=== PATIENT | male | born 1995 | race Caucasian/White ===

== ENCOUNTER 2021-08-07 23:31 | Emergency (ER) | payer OTHER ==
[~2021-08-07] VITALS: Ht 187.9 cm; Wt 121.6 kg
[~2021-08-07 23:31] MED LIST: ANAPROX DS550 MG PO; CIPRO250 MG PO; CIPRO500 MG PO; CLARITIN10 MG PO; Motrin,Rufen800 MG PO; NAPROSYN500 MG PO; PEN-VEE K500 MG PO; PENICILLIN-VK500 MG PO; PROVENTIL0.09 MG/AC IH; SELENIUM SULFI180 M2 T; SYNTHROID0.025 MG PO; TRAMADOL HCL50 MG PO; TYLENOL W/CODEI1 TA4 PO; TYLENOL325 M1 PO; ZITHROMAX Z PA250 MG PO
[2021-08-07 23:37] VITALS: BP 147/78
[2021-08-08] MEDS ORDERED: HYDROCODONE-AC1 EAC1 PO (05:25)
== END 2021-08-08 05:27 | disposition home or self-care (01) ==
LOC: ED 23:31
DX: S62.101A Fracture of unspecified carpal bone, right wrist, initial encounter for closed fracture (principal); S50.11XA Contusion of right forearm, initial encounter; S20.211A Contusion of right front wall of thorax, initial encounter; F17.200 Nicotine dependence, unspecified, uncomplicated; W18.39XA Other fall on same level, initial encounter; Y93.89 Activity, other specified; Y92.89 Other specified places as the place of occurrence of the external cause; Y99.8 Other external cause status

== ENCOUNTER → 2021-08-16 | Outpatient (CLI) | payer OTHER ==
[~2021-08-16] MED LIST changes: +HYDROCODONE-AC1 EAC1 PO
== END | disposition home or self-care (01) ==
LOC: ORTHO 01:24
PROVIDERS: ATTEND Orthopaedic Surgery
DX: S52.531A Colles' fracture of right radius, initial encounter for closed fracture (principal); X58.XXXD Exposure to other specified factors, subsequent encounter

== ENCOUNTER 2022-06-26 18:15 | Emergency (ER) | payer OTHER ==
[~2022-06-26] VITALS: Ht 187.9 cm; Wt 104.3 kg
[2022-06-26 18:33] VITALS: BP 135/85
== END 2022-06-26 20:19 | disposition left against medical advice (07) ==
LOC: ED 18:15
DX: H57.11 Ocular pain, right eye (principal); M25.531 Pain in right wrist; M54.2 Cervicalgia; M25.571 Pain in right ankle and joints of right foot; W51.XXXA Accidental striking against or bumped into by another person, initial encounter; Y93.89 Activity, other specified; Y92.89 Other specified places as the place of occurrence of the external cause; Y99.8 Other external cause status

== ENCOUNTER 2024-05-25 01:59 | Emergency (ER) | payer OTHER ==
[~2024-05-25] VITALS: Wt 108.9 kg
[2024-05-25] MEDS ORDERED: IOHEXOL 300 MG/ML 100 ML VIAL IV ONE (02:10)
[2024-05-25 02:23] LABS: HEMATOCRIT 49.7 % (42.0-52.0); MEAN CELL VOLUME 91.7 fl (80.0-94.0); MEAN CORPUSCULAR HGB 30.3 pg (27.0-31.0); MEAN PLATELET VOLUME 10.4 fl (9.6-12.3); PLATELET COUNT AUTOMATED 297 10*3/uL (130-400); RED BLOOD COUNT 5.42 10*6/uL (4.50-5.90); RED CELL DISTRI WIDTH 13.1 % (0-14.5); WHITE BLOOD COUNT 26.6 10*3/uL (4.8-10.8)
[2024-05-25 02:34] LABS: MANUAL DIFF REFLEX YES
[2024-05-25 02:44] LABS: BUN 11 mg/dl (9-23); CHLORIDE 108 mmol/L (98-107); ETHYL ALCOHOL 3.5 mg/dl (<3); POTASSIUM 4.1 mmol/L (3.4-5.1)
[2024-05-25 02:49] LABS: BURR CELLS FEW; PLATELET SUFFICIENCY NORMAL (NORMAL); TOTAL CELLS COUNTED 100 #CELLS
[2024-05-25] MEDS ORDERED: HYDROmorphONE Hydrochloride 0.5 MG/0.5 ML SYRINGE IV ONE (04:00)
[2024-05-25] MEDS ORDERED: Ondansetron Hydrochloride 4 MG/2 ML VIAL IV ONE (04:00)
[2024-05-25] MEDS ORDERED: Bacitracin Zinc 14 GM TUBE T ONE (07:25)
[2024-05-25] MEDS ORDERED: SODIUM CHLORIDE 0.9% 1,000 ML IV ONE (07:35)
[2024-05-25 07:40] LABS: BASO # 0.1 10*3/uL (0.0-0.1); BASO % 0.4 % (0.0-1.0); EOS # 0.2 10*3/uL (0.0-0.4); EOS % 0.6 % (1.0-4.0); HEMATOCRIT 48.5 % (42.0-52.0); MEAN CELL VOLUME 90.7 fl (80.0-94.0); MEAN CORPUSCULAR HGB 30.5 pg (27.0-31.0); MEAN CORPUSCULAR HGB CONC 33.6 g/dl (33.0-37.0); MONO # 1.3 10*3/uL (0.1-1.0); MONO % 5.7 % (3.0-9.0); NEUT # 17.7 10*3/uL (2.3-7.9); NEUT % 75.2 % (47.0-73.0); PLATELET COUNT AUTOMATED 294 10*3/uL (130-400); RED BLOOD COUNT 5.35 10*6/uL (4.50-5.90); RED CELL DISTRI WIDTH 13.1 % (0-14.5); WHITE BLOOD COUNT 23.5 10*3/uL (4.8-10.8)
[2024-05-25 07:44] VITALS: BP 156/80
[2024-05-25] MEDS ORDERED: Tdap Vaccine 0.5 ML SYR (Adult Vaccine) IM ONE (07:45)
[2024-05-25] MEDS ORDERED: ceFAZolin sodium/sodium chlor 10 ML IV ONE (07:50)
[2024-05-25] MEDS ORDERED: MELOXICAM15 MG PO (07:59)
[2024-05-25] MEDS ORDERED: CEPHALEXIN500 M1 PO (08:00)
== END 2024-05-25 08:25 | disposition home or self-care (01) ==
LOC: ED 01:59
PROVIDERS: Emergency Medicine; Internal Medicine
DX: S80.212A Abrasion, left knee, initial encounter (principal); S80.211A Abrasion, right knee, initial encounter; S60.512A Abrasion of left hand, initial encounter; S60.511A Abrasion of right hand, initial encounter; Z79.899 Other long term (current) drug therapy; V03.90XA Pedestrian on foot injured in collision with car, pick-up truck or van, unspecified whether traffic or nontraffic accident, initial encounter; Y93.89 Activity, other specified; Y92.488 Other paved roadways as the place of occurrence of the external cause; Y99.8 Other external cause status

== ENCOUNTER 2024-12-03 19:29 | Emergency (ER) | payer SELFPAY ==
[~2024-12-03] VITALS: Ht 187.9 cm; Wt 104.3 kg
[~2024-12-03 19:29] MED LIST changes: +CEPHALEXIN500 M1 PO; +MELOXICAM15 MG PO
[2024-12-03 20:00] VITALS: BP 143/82
[2024-12-03] MEDS ORDERED: SEPTDS PO (20:19)
[2024-12-03] MEDS ORDERED: Sulfamethoxazole/Trimethopri 1 TAB TAB PO ONE (20:20)
== END 2024-12-03 20:36 | disposition home or self-care (01) ==
LOC: ED 19:29
DX: L02.512 Cutaneous abscess of left hand (principal)